=== PATIENT | female | born 1955 | race Caucasian/White ===

== ENCOUNTER → 2017-06-27 | Outpatient (CLI) | payer OTHER ==
[~2017-06-27] MED LIST: ALBUPOW9 INH; PRED10TA2 PO; PRED20TA PO; PRED50TA2 PO
--- NOTE | 2017-06-27 13:38 | REP ---
BILATERAL DIGITAL SCREENING MAMMOGRAM: 06/27/2017 COMPARISON: 01/09/2016, 01/24/2015, 12/01/2013. CLINICAL HISTORY: Screening examination. She has no current complaints or personal history of breast cancer. There is a family history of an aunt with breast cancer. FINDINGS: Standard two-view mammography is performed. There are scattered fibroglandular elements of moderate density in a generally symmetric pattern and distribution, not much changed from multiple prior studies. On the MLO view of the right breast, there is a subtle zone of architectural distortion suggested with no similar findings on multiple prior studies in this region. I do not see dominant mass, other areas of architectural distortion, skin thickening, clustered microcalcifications, nor any other secondary signs of malignancy. IMPRESSION: BIRADS ACR category 0, incomplete. Needs additional imaging evaluation. The patient should return for spot magnified right MLO and any other additional imaging evaluation and ultrasound required at the discretion of the reviewing radiologist. BI-RADS/ACR category 0 mammogram, incomplete. Additional imaging and/or prior images are needed before a final assessment can be assigned. This mammogram was interpreted with the aid of an FDA-approved computer-aided detection system. A. Negative x-ray reports should not delay biopsy if a dominant or clinically suspicious mass is present. B. Four to eight percent of cancers are not identified by x-ray. C. Adenosis and dense breasts may obscure an underlying neoplasm. The patient states she/he had a clinical breast exam in June 2017. The patient letter being requested is M0
== END ==
LOC: M WHC 09:08
PROVIDERS: ATTEND Nurse Practitioner Family
DX: R92.2 Inconclusive mammogram (principal)

== ENCOUNTER → 2017-07-15 | Outpatient (CLI) | payer OTHER ==
--- NOTE | 2017-07-15 12:41 | REP ---
DIAGNOSTIC MAMMOGRAM RIGHT BREAST: Spot compression views of the right breast are performed and correlated with the prior mammogram of 06/27/2017, and compared to multiple other prior exams. The suspected focal architectural distortion in the right breast compresses out to an unchanged appearance compared to multiple prior studies with no persistent nodule or other abnormality. IMPRESSION: ACR 2 benign. No persistent nodule or architectural distortion on today's spot compression views. Recommend followup mammogram in 1 year. BI-RADS/ACR category 2 mammogram. Benign finding(s). Routine annual screening mammography (for women over age 40). This mammogram was interpreted with the aid of an FDA-approved computer-aided detection system. A. Negative x-ray reports should not delay biopsy if a dominant or clinically suspicious mass is present. B. Four to eight percent of cancers are not identified by x-ray. C. Adenosis and dense breasts may obscure an underlying neoplasm. The patient letter being requested is M1. Signed by Eulalio Shea MD 07/15/2017 04:03 P
== END ==
LOC: M RAD 11:46
PROVIDERS: ATTEND Nurse Practitioner Family
DX: R92.2 Inconclusive mammogram (principal)

== ENCOUNTER → 2018-06-30 | Outpatient (REF) | payer OTHER | LOC: M SFHCWAGY 09:30 | DX: Z12.4 Encounter for screening for malignant neoplasm of cervix (principal) | CPT/HCPCS: G0123 ==

== ENCOUNTER → 2018-06-30 | Outpatient (CLI) | payer OTHER | LOC: M WHC 09:23 | DX: Z12.31 Encounter for screening mammogram for malignant neoplasm of breast (principal) | CPT/HCPCS: 77067 ==

== ENCOUNTER → 2018-07-14 | Outpatient (CLI) | payer OTHER | LOC: M RAD 11:07 | DX: R92.0 Mammographic microcalcification found on diagnostic imaging of breast (principal) | CPT/HCPCS: 77065 ==

== ENCOUNTER → 2018-09-30 | Outpatient (REF) | payer OTHER | LOC: M LAB REF 18:48 | DX: N60.31 Fibrosclerosis of right breast (principal) ==

== ENCOUNTER 2018-10-28 10:13 | Day surgery (SDC) | payer OTHER ==
[~2018-10-28 10:13] MED LIST changes: -ALBUPOW9 INH; +LIDOCAINE 2% INJ 100 MG/5 ML SDV (FOR ANES.) As Ordered; -PRED10TA2 PO; -PRED20TA PO; -PRED50TA2 PO; +PROPOFOL 200 MG/20 ML VIAL As Ordered
[2018-10-28] MEDS ORDERED: NS 1,000 ML IV (13:00)
== END 2018-10-28 12:55 | disposition home or self-care (01) ==
LOC: M OPP 12:55
DX: Z12.11 Encounter for screening for malignant neoplasm of colon (principal); D12.0 Benign neoplasm of cecum; D12.5 Benign neoplasm of sigmoid colon; K57.30 Diverticulosis of large intestine without perforation or abscess without bleeding; K64.8 Other hemorrhoids; R10.13 Epigastric pain; K20.9 Esophagitis, unspecified
CPT/HCPCS: 45385

== ENCOUNTER → 2018-11-03 | Outpatient (REF) | payer OTHER ==
[2018-11-07 10:13] LABS: COTININE None Detected (.); NICOTINE None Detected (.)
== END ==
LOC: M SFHCWAGY 10:22
DX: Z13.89 Encounter for screening for other disorder (principal)
CPT/HCPCS: G0480

== ENCOUNTER 2019-06-05 12:30 | Emergency (ER) | payer OTHER ==
[~2019-06-05] VITALS: Ht 162.6 cm; Wt 71.8 kg
[~2019-06-05 12:30] MED LIST changes: +ACET-683 PO; +ALBUPOW9 INH; +ESTR1CRE VA; +FIBER PO; +IBUP200C25 PO; -LIDOCAINE 2% INJ 100 MG/5 ML SDV (FOR ANES.) As Ordered; +PRED10TA2 PO; +PRED20TA PO; +PRED50TA2 PO; +PROAAER10 INH; -PROPOFOL 200 MG/20 ML VIAL As Ordered; +VIACTIV 500-5001 CHW PO
[2019-06-05] MEDS ORDERED: PRIL20TA2 PO (14:32)
[2019-06-05 15:17] VITALS: BP 112/59
== END 2019-06-05 15:17 | disposition home or self-care (01) ==
LOC: EDBD 12:30 → M ED 12:30
DX: R09.89 Other specified symptoms and signs involving the circulatory and respiratory systems (principal); T18.128A Food in esophagus causing other injury, initial encounter; X58.XXXA Exposure to other specified factors, initial encounter; Y92.89 Other specified places as the place of occurrence of the external cause; Z87.891 Personal history of nicotine dependence

== ENCOUNTER → 2020-11-16 | Outpatient (CLI) | payer OTHER ==
[~2020-11-16] MED LIST changes: +PRIL20TA2 PO
== END ==
LOC: M LABSMTC 12:59
PROVIDERS: ATTEND Family Medicine
DX: Z20.828 Contact with and (suspected) exposure to other viral communicable diseases (principal)

== ENCOUNTER 2020-11-23 01:31 | Inpatient (IN) | payer OTHER ==
[~2020-11-23] VITALS: Ht 162.6 cm; Wt 64.0 kg
[2020-11-23 02:12] LABS: BASO # 0.1 10^3/uL (0.0-0.2); BASO % 0.7 % (0.0-1.0); EOS # 0.1 10^3/uL (0.0-0.5); EOS % 1.3 % (0.0-3.0); HEMATOCRIT 40.7 % (36.0-47.0); LYMPH # 1.7 10^3/uL (1.5-5.0); LYMPH % 17.3 % (24.0-44.0); MEAN CORPUSCULAR HGB CONC 31.9 g/dl (32.0-36.5); MEAN CORPUSCULAR VOLUME 90.6 fl (80.0-96.0); MONO # 0.8 10^3/uL (0.0-0.8); MONO % 8.2 % (0.0-5.0); NEUTROPHILS % 72.2 % (36.0-66.0); PLATELET COUNT, AUTOMATED 249 10^3/uL (150-450); RED BLOOD COUNT 4.49 10^6/uL (4.00-5.40); WHITE BLOOD COUNT 9.7 10^3/uL (4.0-10.0)
[2020-11-23] MEDS ORDERED: NS 1,000 ML IV ONE (02:15)
[2020-11-23 03:09] LABS: ALBUMIN 3.9 GM/DL (3.2-5.2); ALT/SGPT 27 U/L (12-78); BILIRUBIN,DIRECT < 0.1 MG/DL (0.0-0.2); BILIRUBIN,TOTAL 0.5 MG/DL (0.2-1.0); BLOOD UREA NITROGEN 11 MG/DL (7-18); CALCIUM LEVEL 8.9 MG/DL (8.8-10.2); CARBON DIOXIDE LEVEL 27 MEQ/L (21-32); CHLORIDE LEVEL 106 MEQ/L (98-107); CREATININE FOR GFR 0.74 MG/DL (0.55-1.30); GLOMERULAR FILTRATION RATE > 60.0 (>45); GLUCOSE, FASTING 116 MG/DL (70-100); LIPASE 97 U/L (73-393); POTASSIUM SERUM 4.3 MEQ/L (3.5-5.1); SODIUM LEVEL 142 MEQ/L (136-145)
--- NOTE | 2020-11-23 04:17 | REPVR ---
PROCEDURE INFORMATION: Exam: CT Head Without Contrast Exam date and time: 11/23/2020 3:49 AM Age: 65 years old Clinical indication: Dizziness; Additional info: Multiple syncopal episodes TECHNIQUE: Imaging protocol: Computed tomography of the head without contrast. Radiation optimization: All CT scans at this facility use at least one of these dose optimization techniques: automated exposure control; mA and/or kV adjustment per patient size (includes targeted exams where dose is matched to clinical indication); or iterative reconstruction. COMPARISON: No relevant prior studies available. FINDINGS: Brain: Unremarkable. No hemorrhage. Unremarkable white matter. No mass effect. Cerebral ventricles: No ventriculomegaly. Bones/joints: Unremarkable. No acute fracture. Paranasal sinuses: Visualized sinuses are unremarkable. No fluid levels. Mastoid air cells: Visualized mastoid air cells are well aerated. Soft tissues: Unremarkable. IMPRESSION: No acute intracranial abnormality. Electronically signed by: Baldomero Reddy On 11/23/2020 04:17:14 AM
--- NOTE | 2020-11-23 06:21 | ED PDOC ---
Post-Departure Follow-Up 65yo F with a history of migraines and asthma presents with recurrent syncope. S he reports that she was feeling fine until about midnight when she went to use the bathroom, and became lightheaded after urinating. She passed out, but did not injure herself. Her assisted her up, and helped her into bed where she passed out a few more times. Upon EMS arrival, the patient continued to have multiple syncopal episodes. Her associated symptoms include chills, increased sweating, nausea, vomiting (>6 times), non-bloody diarrhea, fatigue (chronic), and headache (that lasted longer than usual 4 days ago; now resolved). She denies fever, chest pain, SOB, leg pain/swelling, vision/speech changes, hearing/swallowing difficulties, arm/leg weakness, numbness, tingling, recent travel/hospitalization, decreased PO, or other symptoms. Of note, had a COVID test last that was negative. Her exam is unremarkable. She is neurologically intact, afebrile, hemodynamica lly stable and nontoxic appearing. Her symptoms are concerning for an arrhythmia vs dehydration/orthostaic hypotension. I have a lower suspicion for CVA or ACS. Labs, imaging and EKG were obtained. She was given IVF. Her work up was grossly within normal limits. Upon reassessment, she continued to be hemodynamically stable and asymptomatic. I discussed the findings and my impression with the patient. Given her recurrent syncopal episodes, I recommended admission to the hospital for further management. She verbalized understanding and agreed with the plan. She remained clinically stable while under my care. I spoke with Dr. Rivers, who accepted the patient to his services. MILLA RAMOS MD Nov 23, 2020 06:21
[2020-11-23] MEDS ORDERED: PROAAER10 INH (06:33)
[2020-11-23] MEDS ORDERED: ALBUTEROL 90 MCG/ACT 8GM HFA INHALER INH PRN (07:15)
--- NOTE | 2020-11-23 07:47 | ECGEPIP ---
[facility] - ED Test Date: 2020-11-23 Pat Name: FRANCK DE Department: Room: - Gender: Female Chief Minister: kenny : 1955 Requested By: MILLA Floyd Order Number: [id number] Reading MD: Salvador Maldonado Measurements Intervals [place] Rate: 67 P: 65 FL: 145 QRS: 16 QRSD: 97 T: -9 QT: 389 QTc: 412 Interpretive Statements SINUS RHYTHM POSSIBLE LEFT ATRIAL ENLARGEMENT NONSPECIFIC T-WAVE ABNORMALITY Comparison tracing not on file Electronically Signed on 11-23-2020 7:46:46 EST by Salvador Maldonado
--- NOTE | 2020-11-23 08:37 | HPEPDOC ---
[facility] Medical History & Physical Date of Admission Nov 23, 2020 Date of Service: Nov 23, 2020 History and Physical CHIEF COMPLAINT: Recurrent syncopal episodes HISTORY OF PRESENT ILLNESS: 65-year-old female with past medical history of asthma presents for 1 day history of recurrent syncopal episodes. She states for the past 2 weeks, she has been having nonspecific upper respiratory symptoms. She also notes that in November or December of this year she had a severe upper respiratory illness that was deemed to be likely COVID-19, although she was not tested at the time. Today her COVID-19 test is negative. She states that last night she got up to use the bathroom and after urinating, she had a spell of dizziness, with the room spinning, and subsequently passed out. She states that she returned to bed, and continued to have recurrent episodes of nausea, vertigo and passing out. She denies chest pain, shortness of breath, headaches, changes in vision, abdominal pain. PAST MEDICAL HISTORY: #possible COVID-19 infection Nov 2019 #asthma ALLERGIES: Please see below. REVIEW OF SYSTEMS: Negative except as per HPI. HOME MEDICATIONS: Please see below. PHYSICAL EXAMINATION: VITAL SIGNS: See below General: NAD, lying comfortably in bed HEENT: NC/AT, EOMI Lungs: CTA B/L Heart: +S1S2, RRR Abd: soft, NT, +BS Ext: no edema LABORATORY DATA: See below. MICROBIOLOGY: Please see below. A/P: 65 yo female with PMHx possible COVID-19 infection December 2019 - negative test today, presents for recurrent syncopal episodes with vertigo. #syncope - possible BPV - PT c/s pending - telemetry, echocardiogram - EEG, seizure precautions #possible previous COVID-19 infection - todays results are negative #DVT prophylaxis - mechanical Vital Signs Vital Signs Date Time Temp Pulse Resp B/P (MAP) Pulse Ox O2 Delivery O2 Flow Rate FiO2 11/23/20 08:00 98.6 85 20 137/62 (87) 98 Room Air Laboratory Data Labs 24H Laboratory Tests 2 11/23/20 02:01: Immature Granulocyte % (Auto) 0.3, Neutrophils (%) (Auto) 72.2H, Lymphocytes (%) (Auto) 17.3L, Monocytes (%) (Auto) 8.2H, Eosinophils (%) (Auto) 1.3, Basophils ( %) (Auto) 0.7, Neutrophils # (Auto) 7.0, Lymphocytes # (Auto) 1.7, Monocytes # (Auto) 0.8, Eosinophils # (Auto) 0.1, Basophils # (Auto) 0.1, Nucleated Red Blood Cells % (auto) 0.0, Anion Gap 9, Glomerular Filtration Rate > 60.0, Calcium Level 8.9, Total Bilirubin 0.5, Direct Bilirubin < 0.1, Aspartate Amino Transf (AST/SGOT) 30, Alanine Aminotransferase (ALT/SGPT) 27, Alkaline Phosphatase 86, Total Protein 7.0, Albumin 3.9, Albumin/Globulin Ratio 1.3, Lipase 97 11/23/20 04:33: Coronavirus (COVID-19)(PCR) NEGATIVE 11/23/20 07:16: POC Troponin I (Misc) 0.00 CBC/BMP Laboratory Tests 11/23/20 02:01 Home Medications Scheduled PRN Albuterol Sulfate (Proair Hfa) 8.5 Gm Hfa.aer.ad, 2 PUFF INH Q4H PRN for SHORTNESS OF BREATH Allergies Coded Allergies: Echinacea (Verified Allergy, Severe, difficulty breathing. , 11/23/20) acetaminophen (Verified Allergy, Severe, difficulty breathing, 11/23/20) dextromethorphan (Verified Allergy, Severe, difficulty breathing, 11/23/20) doxylamine (Verified Allergy, Severe, difficulty breathing, 11/23/20) pseudoephedrine (Verified Allergy, Severe, difficulty breathing, 11/23/20) aspirin (Verified Allergy, Intermediate, hives, 11/23/20) A-FIB/CHADSVASC A-FIB History Current/History of A-Fib/PAF?: No IVANA BAZZI MD Nov 23, 2020 08:37
[2020-11-23 09:36] LABS: HEMATOCRIT 37.6 % (36.0-47.0); HEMOGLOBIN 12.1 g/dl (12.0-15.5); MEAN CORPUSCULAR HEMOGLOBIN 28.9 pg (27.0-33.0); MEAN CORPUSCULAR HGB CONC 32.2 g/dl (32.0-36.5); MEAN CORPUSCULAR VOLUME 89.7 fl (80.0-96.0); PLATELET COUNT, AUTOMATED 251 10^3/uL (150-450); RED BLOOD COUNT 4.19 10^6/uL (4.00-5.40); WHITE BLOOD COUNT 7.3 10^3/uL (4.0-10.0)
[2020-11-23 10:07] LABS: FREE THYROXINE INDEX 3.1 % (1.3-4.8); THYROID STIMULATING HORMONE 0.942 uIU/ML (0.358-3.740); THYROXINE (T4) 9.4 UG/DL (4.5-12.0)
[2020-11-23 10:28] LABS: ALBUMIN 3.6 GM/DL (3.2-5.2); ALT/SGPT 22 U/L (12-78); BILIRUBIN,TOTAL 0.6 MG/DL (0.2-1.0); BLOOD UREA NITROGEN 8 MG/DL (7-18); CALCIUM LEVEL 8.8 MG/DL (8.8-10.2); CARBON DIOXIDE LEVEL 27 MEQ/L (21-32); CHLORIDE LEVEL 109 MEQ/L (98-107); CREATININE FOR GFR 0.63 MG/DL (0.55-1.30); GLOMERULAR FILTRATION RATE > 60.0 (>45); GLUCOSE, FASTING 92 MG/DL (70-100); SODIUM LEVEL 141 MEQ/L (136-145); TOTAL PROTEIN 6.3 GM/DL (6.4-8.2)
[2020-11-23 11:03] VITALS: BP 128/76
--- NOTE | 2020-11-23 16:31 | REP ---
INDICATION: syncope COMPARISON: None. TECHNIQUE: Real-time ultrasound evaluation and duplex Doppler interrogation of the extracranial carotid vasculature is performed. FINDINGS: Antegrade flow is observed in both vertebral arteries. Right carotid: The right common carotid artery shows diffuse intimal thickening but is otherwise unremarkable. Color flow and spectral Doppler interrogation are unremarkable on the right. Velocity chart right carotid: Right CCA PSV: 130 cm/S Right ICA PSV: 111 cm/S Right ICA EDV: 39 cm/S Right ECA PSV: 122 cm/S Right ICA/CCA ratio: 0.9 Left carotid: The left common carotid artery shows diffuse intimal thickening but is otherwise unremarkable. Color flow and spectral Doppler interrogation are unremarkable on the left. Velocity chart left carotid: Left CCA PSV: 128 cm/S Left ICA PSV: 121 cm/S Left ICA EDV: 20 cm/S Left ECA PSV: 140 cm/S Left ICA/CCA ratio: 0.95 IMPRESSION: Less than 50% category narrowing in the right internal carotid artery by Doppler velocity criteria. Mild diffuse intimal thickening. No significant plaquing. Less than 50% category narrowing in the left ICA by Doppler velocity criteria. Mild diffuse intimal thickening. No significant plaquing. <Electronically signed by Turner Mueller > 11/23/20 [id number]
[2020-11-23 17:00] VITALS: BP 136/62
[2020-11-23] MEDS ORDERED: diazePAM 2 MG TAB PO ONE (18:45)
[2020-11-23] MEDS ORDERED: PILL CUTTER 1 EACH XX PRN (19:00)
--- NOTE | 2020-11-23 20:05 | REPVR ---
PROCEDURE INFORMATION: Exam: MR Head Without Contrast Exam date and time: 11/23/2020 7:09 PM Age: 65 years old Clinical indication: Syncope and collapse TECHNIQUE: Imaging protocol: MR of the head without contrast. COMPARISON: CT Head without contrast 11/23/2020 3:54 AM FINDINGS: Ventricles demonstrate normal size and configuration. Major vascular flow voids at the skull base are preserved. No extra-axial fluid collection. No midline shift or intracranial mass effect. Mild nonspecific white matter gliosis, probable chronic microvascular ischemia. No pathologic susceptibility. No diffusion restriction. Minimal paranasal sinus disease. No mastoid effusion. IMPRESSION: No acute intracranial abnormality. Electronically signed by: Tez Ritter On 11/23/2020 20:05:37 PM
--- NOTE | 2020-11-23 20:10 | REPVR ---
PROCEDURE INFORMATION: Exam: MR Angiogram Head Without Contrast, Arteries Exam date and time: 11/23/2020 7:09 PM Age: 65 years old Clinical indication: Syncope and collapse TECHNIQUE: Imaging protocol: MR angiogram head without contrast. Exam focused on the arteries. 3D rendering (Not supervised by radiologist): MIP and/or 3D reconstructed images were created by the technologist. COMPARISON: CT Head without contrast 11/23/2020 3:54 AM FINDINGS: ANTERIOR CIRCULATION: Right internal carotid artery: Intracranial segment is patent with no significant stenosis. No aneurysm. Right middle cerebral artery: No occlusion or significant stenosis. No aneurysm. Right anterior cerebral artery: No occlusion or significant stenosis. No aneurysm. Left internal carotid artery: Intracranial segment is patent with no significant stenosis. No aneurysm. Left middle cerebral artery: No occlusion or significant stenosis. No aneurysm. Left anterior cerebral artery: No occlusion or significant stenosis. No aneurysm. POSTERIOR CIRCULATION: Right vertebral artery: No occlusion or significant stenosis. No aneurysm. Left vertebral artery: No occlusion or significant stenosis. No aneurysm. Basilar artery: No occlusion or significant stenosis. No aneurysm. Right posterior cerebral artery: No occlusion or significant stenosis. No aneurysm. Left posterior cerebral artery: Patent left posterior communicating artery with hypoplastic left P1 segment. IMPRESSION: No hemodynamically significant stenosis or large vessel occlusion. Electronically signed by: Tez Ritter On 11/23/2020 20:10:20 PM
[2020-11-23 20:29] VITALS: BP 113/53
[2020-11-24] VITALS: BP 115/29
[2020-11-24] MEDS ORDERED: ACETAMINOPHEN TAB 650MG DOSE (2X325MG) PO PRN (02:30)
[2020-11-24 04:00] VITALS: BP 124/59
[2020-11-24 05:41] LABS: HEMATOCRIT 35.7 % (36.0-47.0); HEMOGLOBIN 11.5 g/dl (12.0-15.5); MEAN CORPUSCULAR HEMOGLOBIN 29.7 pg (27.0-33.0); MEAN CORPUSCULAR HGB CONC 32.2 g/dl (32.0-36.5); MEAN CORPUSCULAR VOLUME 92.2 fl (80.0-96.0); PLATELET COUNT, AUTOMATED 210 10^3/uL (150-450); RED BLOOD COUNT 3.87 10^6/uL (4.00-5.40); WHITE BLOOD COUNT 7.1 10^3/uL (4.0-10.0)
[2020-11-24 06:44] LABS: BLOOD UREA NITROGEN 7 MG/DL (7-18); CALCIUM LEVEL 8.7 MG/DL (8.8-10.2); CARBON DIOXIDE LEVEL 28 MEQ/L (21-32); CHLORIDE LEVEL 107 MEQ/L (98-107); CREATININE FOR GFR 0.67 MG/DL (0.55-1.30); GLOMERULAR FILTRATION RATE > 60.0 (>45); GLUCOSE, FASTING 92 MG/DL (70-100); POTASSIUM SERUM 3.9 MEQ/L (3.5-5.1); SODIUM LEVEL 141 MEQ/L (136-145); TRIGLYCERIDES LEVEL 57 MG/DL (<150)
[2020-11-24 06:45] LABS: CHOLESTEROL LEVEL 197 MG/DL (<200); CHOLESTEROL RISK RATIO 2.736 (<5); HDL CHOLESTEROL 72 MG/DL (>40); LDL CHOLESTEROL 114 MG/DL (<100); NON-HDL-C 125 MG/DL
[2020-11-24 08:00] VITALS: BP 126/59
--- NOTE | 2020-11-24 08:59 | IPN ---
PROGRESS NOTE DATE: 11/24/2020 SUBJECTIVE: Edith is admitted with syncope. She has had no recurrence. Telemetry was unremarkable overnight, some mild sinus bradycardia. She has not had any dizziness, weakness or other near syncopal events. Workup so far has been unremarkable. Normal MRI of the brain. MRA and carotids were normal. Lab work has been unrevealing. PHYSICAL EXAMINATION: VITAL SIGNS: Stable. Blood pressure 124/59. LUNGS: Clear. HEART: Rhythm regular. ABDOMEN: Soft, nontender. EXTREMITIES: No peripheral edema. NEUROLOGIC: Normal cranial function, strength, reflexes, sensation and gait. LABS: CBC and BMP unremarkable. IMPRESSION: Syncope, etiology is unknown. I recommend another 24 hours of telemetry. She apparently had an EEG done, the results are pending. She apparently had an echocardiogram done and those results are pending as well. Anticipate discharge tomorrow.
[2020-11-24 12:00] VITALS: BP 119/63
--- NOTE | 2020-11-24 12:49 | ECHO ---
DATE OF PROCEDURE: 11/23/2020 Age: 65 Gender: Female Height: Weight: REFERRING PROVIDER: Fredo Carrillo M.D. PATIENT LOCATION: Room 3219. REASON FOR STUDY: Syncope. 2D MEASUREMENTS: IVS 1.1 cm LV 3.8 cm LVPW 1.1 cm LA 3.6 cm Aorta 2.6 cm IVC 1.9 cm DOPPLER MEASUREMENT Peak velocity across the aortic valve 1.2 msec Peak velocity across the LVOT 1.1 msec Mitral E 0.86 Mitral A 0.62 with a ratio of 1.4 Maximum tricuspid valve velocity 2.7 msec 2D COMMENTS: * Normal left ventricular size, wall thickness, and normal global left ventricular systolic function. The estimated left ventricular systolic ejection fraction is 60% to 65%. * Normal left atrium. Normal right atrium and right ventricle. * The atrial septum appeared to be normal without evidence of defect or shunt. * Normal aortic root. * A trace pericardial effusion was noted, no evidence of cardiac tamponade. * Mildly calcified aortic valve with normal leaflet excursion. Normal mitral valve and tricuspid valve. The pulmonic valve and proximal pulmonary artery branches were not well visualized. * The inferior vena cava was mildly dilated, central venous pressure might be elevated. Doppler with only mild tricuspid regurgitation detected. The calculated pulmonary artery systolic pressure varied between 30 to 40 mmHg. Assessment of the left ventricular diastolic function appeared to be normal. IMPRESSION: * Normal global left ventricular systolic and diastolic function. * Aortic valve sclerosis without stenosis or aortic regurgitation. * Mild tricuspid regurgitation with probably mild pulmonary hypertension. * A trace pericardial effusion was noted. No evidence of cardiac tamponade. * There are some features of elevated central venous pressure, the inferior vena cava was mildly enlarged. MTDD
[2020-11-24 16:00] VITALS: BP 138/63
[2020-11-24 20:00] VITALS: BP 107/55
[2020-11-25] VITALS: BP 103/56
[2020-11-25 04:00] VITALS: BP 114/55
[2020-11-25 07:53] VITALS: BP 108/55
--- NOTE | 2020-11-25 09:03 | DSES ---
DISCHARGE SUMMARY DATE OF ADMISSION: 11/23/2020 DATE OF DISCHARGE: 11/25/2020 PRINCIPAL DIAGNOSIS: Syncope, etiology unknown. HISTORY: Patient was admitted on a syncopal episode. Details in the history and physical from admission. It sounds like she had a vasovagal event. She stood up and became lightheaded after urinating and had triggered brief syncope. HOSPITAL COURSE: She was admitted to a telemetry bed. Telemetry was unremarkable with no arrhythmias. MRI of the brain was unremarkable. Vascular studies showed no carotid stenosis. Echocardiogram showed ejection fraction of 60-65%. Aortic sclerosis noted without stenosis. EEG pending. Labs were unrevealing. Today's white count was 7.1, hemoglobin 11.5, platelets 210, sodium 141, potassium 3.9, BUN 7, creatinine 0.6, glucose 92. Lipids were unremarkable. Thyroid functions were normal. Troponins were negative. COVID test was negative. DISPOSITION: She is discharged home improved in stable condition. She will followup with her primary care provider in a week. Activity as tolerated. Resume previous regular diet. She will resume the medicines she was taking prior to admission which was just an albuterol inhaler on an as needed basis. The only pending lab is the EEG. She understands the need to followup on this with her primary care provider.
--- NOTE | 2020-11-25 11:18 | EEG ---
ELECTROENCEPHALOGRAM DATE: 11/23/2020 DIAGNOSIS: Recurrent syncope, rule out seizures. EEG# [id number] REFERRING PHYSICIAN: Fredo Carrillo M.D. HISTORY: Patient is a 65-year-old woman with episodes of recurrent passing out spells. She is currently taking Albuterol inhaler. TECHNICAL DESCRIPTION: This digital EEG was recorded by 21-scalp, ear, and two EKG electrodes and was reviewed in bipolar and referential montages following reformatting in 10-20 international electrode placement system. INTERPRETATION: Patient was noted to be in awake and drowsy states during this EEG. Resting and awake background rhythm consisted of well-formed posterior dominant rhythm with anterior-posterior rhythm comprising of 9 Hz alpha activity measuring 15-40 microvolts in amplitude, which was symmetric and reactive to eye opening. Attenuation of posterior dominant rhythm was seen during transition to drowsiness. Anteriorly low voltage and mixed frequency activity was noted. Stage 1 and 2 sleep were reviewed and were symmetric bilaterally. Hyperventilation could not be performed. Photic stimulation remained unremarkable. EKG revealed normal sinus rhythm. No focal, lateralizing, or epileptiform abnormalities were seen. No relevant clinical activity was noted. Electrode artifact was noted intermittently. CONCLUSION: This EEG in awake, drowsy states, stage 1 and 2 sleep is within normal limits.
== END 2020-11-25 10:16 | disposition home or self-care (01) | DRG 204 ==
LOC: M ED 01:31 → M ED INP 07:12 → M PCU 10:36
PROVIDERS: ADMIT Internal Medicine; ATTEND Family Medicine
DX: R55 Syncope and collapse (principal); J45.909 Unspecified asthma, uncomplicated; Z88.6 Allergy status to analgesic agent; Z88.8 Allergy status to other drugs, medicaments and biological substances

== ENCOUNTER → 2021-01-24 | Outpatient (CLI) | payer OTHER ==
--- NOTE | 2021-01-24 12:00 | REP ---
INDICATION: RADICULOPATHY POST FALL COMPARISON: None. TECHNIQUE: AP, lateral, coned-down views of the lumbar spine. FINDINGS: Three views of the lumbosacral spine demonstrate satisfactory alignment and lordosis without acute fracture / compression injury or subluxation. Underlying age-related osteopenia and moderate degenerative changes noted. IMPRESSION: 1. No acute fracture / compression injury or subluxation. 2. Underlying osteopenia and age-related changes. <Electronically signed by Gordy El > 01/24/21 [id number]
--- NOTE | 2021-01-24 12:01 | REP ---
INDICATION: RADICULOPATHY POST FALL COMPARISON: None. TECHNIQUE: AP and lateral views of the sacrum and coccyx. FINDINGS: Sacrum, coccyx, sacroiliac joints and surrounding soft tissues appear essentially age-appropriate. No obvious acute fracture or subluxation. IMPRESSION: . No acute fracture or dislocation. <Electronically signed by Gordy El > 01/24/21 [id number]
== END ==
LOC: M WUC 11:04
PROVIDERS: ATTEND Physician Assistant
DX: M54.17 Radiculopathy, lumbosacral region (principal)

== ENCOUNTER → 2022-05-23 | Outpatient (CLI) | payer MEDICARE | LOC: M WHC 08:09 | PROVIDERS: ATTEND Registered Nurse | DX: Z12.31 Encounter for screening mammogram for malignant neoplasm of breast (principal); Z13.820 Encounter for screening for osteoporosis; M85.851 Other specified disorders of bone density and structure, right thigh; M85.852 Other specified disorders of bone density and structure, left thigh ==

== ENCOUNTER → 2022-09-13 | Outpatient (REF) | payer MEDICARE | LOC: M LAB REF 17:08 | PROVIDERS: ATTEND Surgery | DX: D17.21 Benign lipomatous neoplasm of skin and subcutaneous tissue of right arm (principal) ==

== ENCOUNTER → 2024-04-02 | Outpatient (CLI) | payer MEDICARE | LOC: M WUC 09:44 | PROVIDERS: ATTEND Nurse Practitioner Adult Health | DX: M54.59 Other low back pain (principal) ==

== ENCOUNTER → 2024-07-10 | Outpatient (REF) | payer MEDICARE ==
[2024-07-10 20:48] LABS: RSV AMPLIFICATION NEGATIVE (NEGATIVE)
== END ==
LOC: M LAB REF 19:31
PROVIDERS: ATTEND Physician Assistant
DX: B34.9 Viral infection, unspecified (principal)